=== PATIENT | female | born 1930 | race Caucasian/White ===

== ENCOUNTER 2017-04-09 01:14 | Emergency (ER) | payer MEDICARE, BC ==
[~2017-04-09] VITALS: Ht 165.1 cm; Wt 59.4 kg
[~2017-04-09 01:14] MED LIST: ACETAMINOPHEN500 MG PO; ALEVE220 M1 PO; ASPIR 8181 MG PO; ATROVENT HFA12.9 GM INH; B-12500 MCG PO; BENZONATATE100 MG PO; BIOTIN2500 MCG PEG; EXELON1 EAC1; EXELON1.5 MG TOP; FELODIPINE ER2.5 MG PO; FIBERCON625 MG PO; FUROSEMIDE40 MG PO; HYDRALAZINE HCL25 MG PO; IRON55 MG PO; KLOR-CON 88 MEQ PO; LOSARTAN POTAS100 MG PO; MOVE FREE PO; MUCINEX DM ER1 EACH PO; NAMENDA10 MG PO; PANTOPRAZOLE SO40 MG PO; RANITIDINE HCL300 M1 PO; VERAMYST10 GM; VIACTIV SOFT C1 EACH; [UNRECOGNIZED DRUG - OTHER]
[2017-04-09] MEDS ORDERED: FIBERCON625 MG PO (01:43)
[2017-04-09] MEDS ORDERED: FERROUS SULFAT325 MG PO (01:43)
[2017-04-09] MEDS ORDERED: MUCINEX DM ER1 EACH PO (01:43)
[2017-04-09] MEDS ORDERED: ADVAIR 100-501 EACH INH (01:43)
[2017-04-09] MEDS ORDERED: QUETIAPINE FUMA25 MG PO (01:43)
[2017-04-09] MEDS ORDERED: LOSARTAN POTAS100 MG PO (01:43)
[2017-04-09] MEDS ORDERED: EXELON1 EAC1 TOP (01:43)
--- NOTE | 2017-04-09 03:24 | Diagnostic Imaging Report ---
History:Falll Comparison studies:None Technique: Axial images were obtained from the skull base to the vertex. Coronal and sagittal images reconstructed from the axial data. Intravenous contrast: None Findings: Scalp/skull: No abnormalities. Extra-axial spaces: No masses. No fluid collections. Brain sulci: Mildly prominent. Ventricles: Mild compensatory dilatation. No hydrocephalus. Parenchyma: Few hypodensities in the supratentorial white matter are small vessel ischemic changes. No masses, hemorrhage, acute or chronic cortical vascular insults. Sellar/suprasellar region: No abnormalities. Craniocervical junction: Patent foramen magnum. No Chiari one malformation. Incidental findings: Mild atherosclerotic calcifications in the carotid siphons . Air fluid level at the left maxillary sinus. Impression: No acute intracranial abnormalities. Non specific air fluid level at the left maxillary sinus, could be inflammatory or post traumatic, no displaced fractures. Chronic findings: 1. Mild generalized volume loss. 2. Mild supratentorial white matter small vessel ischemic changes. Signed by: DR Silvestre Day M.D. on 04/09/2017 3:21 AM
--- NOTE | 2017-04-09 03:31 | Diagnostic Imaging Report ---
History: Fall Comparison studies: None Technique: Axial images were obtained through the cervical region. Coronal and sagittal images reconstructed from the axial data. Intravenous contrast: None Findings: Atlantoaxial articulation: No acute abnormality Alignment: Normal lordosis No scoliosis. Cervicomedullary junction: No abnormalities. Patent foramen magnum. Soft tissues: No gross abnormalities. Vertebrae: No fractures, neoplasm or infection. Degenerative changes: Facet and uncinate process hypertrophy result in moderate right foraminal narrowing at C3-4 and mild right foraminal narrowing at C4-5 and C5-6. Patent canal. Disc degeneration at C6-7. IMPRESSION: 1. No acute cervical spine abnormalities. Degenerative changes as described, 2. Cannot exclude ligament, spinal cord and or vascular abnormalities on the basis of this examination. Signed by: DR Silvestre Day M.D. on 04/09/2017 3:27 AM
--- NOTE | 2017-04-09 03:42 | Diagnostic Imaging Report ---
SHOULDER LEFT COMPLETE, PELVIS AP 1-2 VIEWS, ELBOW LEFT COMPLETE, WRIST COMPLETE LEFT Comparison: None Clinical history: Status post fall with left arm and pelvic pain Findings: Overall decreased bone mineralization. Left shoulder, left elbow, left wrist: No acute fracture or dislocation. Suboptimal lateral view of the elbow precluding adequate assessment for joint effusion. Severe first CMC degenerative change. AP pelvis: Bowel gas/stool overlies portions of the bony pelvis. Moderate/severe right greater than left hip and partially imaged lumbosacral degenerative changes. No acute fracture seen. Impression: No acute bony abnormality of the left shoulder, elbow, wrist or pelvis. Signed by: Dr Laureen Looney MD on 04/09/2017 3:38 AM
[2017-04-09 04:41] VITALS: BP 125/85
== END 2017-04-09 04:42 ==
LOC: ER 01:14
DX: S00.03XA Contusion of scalp, initial encounter (principal); S40.012A Contusion of left shoulder, initial encounter; S50.02XA Contusion of left elbow, initial encounter; M25.532 Pain in left wrist; W06.XXXA Fall from bed, initial encounter; W01.0XXA Fall on same level from slipping, tripping and stumbling without subsequent striking against object, initial encounter; Y92.122 Bedroom in nursing home as the place of occurrence of the external cause; I10 Essential (primary) hypertension; F03.90 Unspecified dementia, unspecified severity, without behavioral disturbance, psychotic disturbance, mood disturbance, and anxiety; Z88.8 Allergy status to other drugs, medicaments and biological substances; Z88.5 Allergy status to narcotic agent
CPT/HCPCS: 70450; 72125; 72170; 99284

== ENCOUNTER 2017-04-20 13:05 | Inpatient (IN) | payer MEDICARE, BC ==
[~2017-04-20] VITALS: Ht 170.2 cm; Wt 59.4 kg
[~2017-04-20 13:05] MED LIST changes: +ADVAIR 100-501 EACH INH; +EXELON1 EAC1 TOP; +FERROUS SULFAT325 MG PO; +QUETIAPINE FUMA25 MG PO
[2017-04-20] MEDS ORDERED: SODIUM CHLORIDE 0.9% 1000ML 1,000 ML IV STA (13:42)
[2017-04-20 14:15] LABS: BASOPHILS % 0.3 % (0.0-1.0); EOSINOPHILS # (AUTO) 0.1 (0.0-0.4); HEMATOCRIT 33.6 % (34.2-44.1); LYMPHOCYTES # (AUTO) 2.8 (1.0-3.2); MEAN CORPUSCULAR HEMOGLOBIN 31.4 pg (28-32); MEAN CORPUSCULAR HGB CONC 32.7 g/dL (31-35); MONOCYTES # (AUTO) 1.1 (0.2-0.8); NEUTROPHILS # (AUTO) 7.1 (2.1-6.9); NEUTROPHILS % 62.9 % (38.7-80.0); PLATELET COUNT 305 x10e3/uL (140-360); RED CELL DISTRIBUTION WIDTH 13.8 % (11.7-14.4)
--- NOTE | 2017-04-20 14:21 | Diagnostic Imaging Report ---
History:AMS Comparison studies:CT head 04/09/17 Technique: Axial images were obtained from the skull base to the vertex. Coronal and sagittal images reconstructed from the axial data. Intravenous contrast: None Findings: Scalp/skull: No abnormalities. Extra-axial spaces: No masses. No fluid collections. Brain sulci: Mildly prominent. Ventricles: Mild compensatory dilatation. No hydrocephalus. Parenchyma: Scattered hypodensities in the supratentorial white matter are small vessel ischemic changes. No masses, hemorrhage, acute or chronic cortical vascular insults. Sellar/suprasellar region: No abnormalities. Craniocervical junction: Patent foramen magnum. No Chiari one malformation. Incidental findings: Atherosclerotic calcifications in the carotid siphons . Nonspecific inflammatory changes of the maxillary sinuses. Impression: No acute abnormalities. Chronic findings: 1. Mild generalized volume loss. 2. Mild supratentorial white matter small vessel ischemic changes. Signed by: DR Silvestre Day M.D. on 04/20/2017 2:18 PM
[2017-04-20 14:30] LABS: ALBUMIN 2.1 g/dL (3.5-5.0); ALBUMIN/GLOBULIN RATIO 0.4 (0.8-2.0); ANION GAP 16.9 mmol/L (8-16); CREATININE, SERUM 2.1 mg/dL (0.57-1.11); POTASSIUM 3.9 mmol/L (3.5-5.1)
--- NOTE | 2017-04-20 14:36 | Diagnostic Imaging Report ---
EXAMINATION: Chest, PA. Abdomen, 2 views. INDICATION: Chest pain COMPARISON: None FINDINGS: LINES: None. Heart: Normal cardiac silhouette. Vascular: The pulmonary vasculature is within normal limits. Atherosclerotic calcifications of the aortic arch. Mediastinum: No mediastinal, hilar, or axillary mass or lymphadenopathy. Lungs: No parenchymal mass. No focal consolidation. Pleura: No pleural effusion. No pneumothorax. Bowel: No air fluid levels.. No pneumoperitoneum.. Moderate amount of retained feces and air are noted in the colon and rectum. No calcifications project over the renal shadows, expected course of the ureters bilaterally, and bladder. Soft tissues: Normal. Bones: No acute osseous abnormality. Degenerative changes of the thoracic and lumbar spine and pelvis. Impression: No acute radiographic abnormality. Signed by: Dr. Duane Marie M.D. on 04/20/2017 2:33 PM
[2017-04-20 14:37] LABS: CREATINE KINASE MB 1.2 ng/mL (0.00-5.00); TROPONIN I 0.013 ng/mL (0-0.300)
[2017-04-20 15:35] LABS: BILIRUBIN,URINE NEGATIVE (NEGATIVE); KETONES,URINE NEGATIVE (NEGATIVE); LEUKOCYTE ESTERASE ,URINE NEGATIVE (NEGATIVE); NITRITE,URINE NEGATIVE (NEGATIVE); URINE UROBILINOGEN 0.2 mg/dL (0.2 - 1)
[2017-04-20 15:40] LABS: CLARITY,URINE HAZY (CLEAR); COLOR,URINE YELLOW (YELLOW); PROTEIN,URINE DIPSTICK TRACE (NEGATIVE)
[2017-04-20 15:41] LABS: BACTERIA,URINE FEW /HPF; EPITHELIAL CELLS,URINE FEW /LPF; RBC,URINE 0-5 /HPF (0-5); WBC,URINE (MAN) 0-5 /HPF (0-5)
[2017-04-20] MEDS ORDERED: ONDANSETRON HCL INJ 2 MG/ML VIAL IV PRN (16:45)
[2017-04-20] MEDS ORDERED: LACTULOSE SYRUP 20 GM/30 ML UDC PO PRN (16:45)
[2017-04-20] MEDS: SODIUM CHLORIDE 0.9% 1000ML 1,000 ML IV SCH (19:00)
[2017-04-20 23:45] VITALS: BP 158/82
[2017-04-21 04:00] VITALS: BP 134/81
[2017-04-21] MEDS: SODIUM CHLORIDE 0.9% 1000ML 1,000 ML IV SCH ×2 (05:48→08:40)
[2017-04-21 07:30] VITALS: BP 150/96
[2017-04-21 07:48] LABS: BASOPHILS % 0.2 % (0.0-1.0); EOSINOPHILS # (AUTO) 0.1 (0.0-0.4); HEMATOCRIT 31.2 % (34.2-44.1); HEMOGLOBIN 10.2 g/dL (12.0-16.0); LYMPHOCYTES # (AUTO) 2.1 (1.0-3.2); LYMPHOCYTES % 21.1 % (18.0-39.1); MEAN CORPUSCULAR HEMOGLOBIN 31.4 pg (28-32); MEAN CORPUSCULAR HGB CONC 32.7 g/dL (31-35); MONOCYTES # (AUTO) 1.2 (0.2-0.8); NEUTROPHILS # (AUTO) 6.3 (2.1-6.9); NEUTROPHILS % 64.3 % (38.7-80.0); PLATELET COUNT 287 x10e3/uL (140-360); RED BLOOD COUNT 3.25 x10e6/uL (3.6-5.1); RED CELL DISTRIBUTION WIDTH 13.8 % (11.7-14.4)
[2017-04-21 08:00] VITALS: BP 150/96
[2017-04-21 08:19] LABS: ANION GAP 15.2 mmol/L (8-16); CALCIUM 8.2 mg/dL (8.4-10.2); CREATININE, SERUM 1.31 mg/dL (0.57-1.11); POTASSIUM 3.2 mmol/L (3.5-5.1)
[2017-04-21] MEDS ORDERED: SODIUM CHLORIDE 0.45% 1,000 ML IV ONE (11:00)
[2017-04-21] MEDS: AZITHROMYCIN 500MG/NS 250 ML 250 ML IV SCH (11:54)
[2017-04-21 12:00] VITALS: BP 126/74
[2017-04-21 16:00] VITALS: BP 163/84
[2017-04-21] MEDS: FAMOTIDINE 20 MG TAB PO SCH (16:30)
[2017-04-21 20:00] VITALS: BP 155/89
[2017-04-21] MEDS ORDERED: POTASSIUM CHLORIDE 20MEQ/100ML 100 ML IV ONE (20:30)
[2017-04-21] MEDS: HEPARIN SOD (PORCINE) 5,000 UNIT/ML VIAL SC SCH (22:30)
[2017-04-21] MEDS ORDERED: POTASSIUM CHLORIDE 10MEQ/100ML 100 ML IV ONE ×2 (22:30)
[2017-04-22] VITALS (7 sets, daily range): BP systolic 121–175; BP diastolic 61–100
[2017-04-22] MEDS: FAMOTIDINE 20 MG TAB PO SCH ×2 (09:50→16:29)
[2017-04-22] MEDS: HEPARIN SOD (PORCINE) 5,000 UNIT/ML VIAL SC SCH ×2 (09:52→21:00)
[2017-04-22 09:55] LABS: ANION GAP 17.2 mmol/L (8-16); CALCIUM 8.1 mg/dL (8.4-10.2); CREATININE, SERUM 0.97 mg/dL (0.57-1.11); POTASSIUM 3.2 mmol/L (3.5-5.1)
[2017-04-22] MEDS: AZITHROMYCIN 500MG/NS 250 ML 250 ML IV SCH (12:21)
[2017-04-22] MEDS ORDERED: LABETALOL HCL IV 5 MG/ML 20ML MDV IV PRN (12:45)
--- NOTE | 2017-04-22 12:58 | History and Physical ---
CHIEF COMPLAINT: Unresponsiveness. HISTORY OF PRESENT ILLNESS: This 86-year-old woman, who lives at [facility], developed unresponsiveness. Last week, the patient had been having respiratory congestion and coughing. She has also had decreased oral intake in the past week per her daughter at the bedside. The patient was found to be dehydrated with acute kidney injury. She was admitted for further evaluation and management. The patient is unable to provide any history in part due to dementia. PAST MEDICAL HISTORY: Dementia, hypertension, urinary tract infection, peptic ulcer disease with perforation status post surgical management, ambulatory dysfunction with use of a walker. Sepsis. Adverse effect due to salicylates/aspirin causing perforated ulcer. PAST SURGICAL HISTORY: Perforated ulcer, status post surgical management. Appendectomy and hysterectomy. ALLERGIES: PER ELECTRONIC MEDICAL RECORD. FAMILY/SOCIAL HISTORY: The patient is . She has 2 children. No alcohol, illicits or cigarettes. MEDICATIONS: Per electronic medical record. REVIEW OF SYSTEMS: Denies any chest pain or shortness of breath. PHYSICAL EXAMINATION VITAL SIGNS: Temperature 97.2, pulse 77, blood pressure 114/48, respiratory rate 16, oxygen 97% on room air. GENERAL APPEARANCE: A tired-appearing woman resting in bed. HEENT: Anicteric. CARDIOVASCULAR: Normal S1 and S2. LUNGS: Moderate breath sounds, slightly reduced at the bases. ABDOMEN: Soft, nontender, nondistended. EXTREMITIES: No edema or calf tenderness. NEUROLOGIC: Alert. Oriented times 2. She moves all extremities. She is confused. She thinks her daughter is her sister. LABS: Reviewed. MEDICATIONS: Reviewed. ASSESSMENT AND PLAN: This is an 86-year-old woman. 1. Electrolyte derangement. 2. Hypernatremia and hypokalemia. Change fluids to half-normal saline and replace potassium and recheck. 3. Acute kidney injury. Rehydrate the patient. 4. Acute delirium in the setting of dementia. Restart home medications and rehydrate the patient. 5. Upper respiratory infection. Will use azithromycin for coverage of atypicals. 6. Ambulatory dysfunction and physical deconditioning. Will get physical therapy on board. 7. Prophylaxis. Will use heparin and Pepcid. 8. Disposition: Physical therapy consultation. Continue antitussives. Discharge planning. Follow up labs tomorrow. Job#: [id number]
[2017-04-22] MEDS ORDERED: ALPRAZOLAM 0.25 MG TAB PO PRN (18:15)
[2017-04-22] MEDS ORDERED: HALOPERIDOL LACTATE 5 MG/ML VIAL IM ONE (19:00)
[2017-04-23] VITALS (8 sets, daily range): BP systolic 100–147; BP diastolic 57–87
[2017-04-23] MEDS ORDERED: HALOPERIDOL LACTATE 5 MG/ML VIAL IM ONE
[2017-04-23 07:26] LABS: BASOPHILS % 0.4 % (0.0-1.0); EOSINOPHILS # (AUTO) 0.2 (0.0-0.4); EOSINOPHILS % 1.7 % (0.0-6.0); HEMATOCRIT 31.5 % (34.2-44.1); HEMOGLOBIN 10.2 g/dL (12.0-16.0); LYMPHOCYTES # (AUTO) 2.1 (1.0-3.2); LYMPHOCYTES % 23.1 % (18.0-39.1); MEAN CORPUSCULAR HEMOGLOBIN 31.5 pg (28-32); MEAN CORPUSCULAR HGB CONC 32.4 g/dL (31-35); MEAN CORPUSCULAR VOLUME 97.2 fL (81-99); MONOCYTES # (AUTO) 1.4 (0.2-0.8); MONOCYTES % 15.3 % (4.4-11.3); NEUTROPHILS # (AUTO) 5.3 (2.1-6.9); NEUTROPHILS % 59.2 % (38.7-80.0); PLATELET COUNT 243 x10e3/uL (140-360); RED BLOOD COUNT 3.24 x10e6/uL (3.6-5.1); RED CELL DISTRIBUTION WIDTH 13.9 % (11.7-14.4)
[2017-04-23 07:54] LABS: ANION GAP 14.1 mmol/L (8-16); CALCIUM 7.6 mg/dL (8.4-10.2); CREATININE, SERUM 0.95 mg/dL (0.57-1.11); POTASSIUM 3.1 mmol/L (3.5-5.1)
--- NOTE | 2017-04-23 08:01 | Progress Note ---
DATE: April 22, 2017 TIME: 6 a.m. OVERNIGHT: More alert. REVIEW OF SYSTEMS: Denies any chest pain. VITAL SIGNS: Reviewed. PHYSICAL EXAMINATION GENERAL: A tired-appearing woman resting in bed. HEENT: Anicteric. CARDIOVASCULAR: Normal S1 and S2. LUNGS: Moderate breath sounds. ABDOMEN: Soft, nontender, nondistended. EXTREMITIES: No edema or calf tenderness. NEUROLOGIC: Alert. Oriented times 2. She moves all extremities. SKIN: Dry. PSYCHIATRIC: Flat affect. LABS: Reviewed. MEDICATIONS: Reviewed. ASSESSMENT AND PLAN: This is an 86-year-old woman. 1. Electrolyte derangement. 2. Acute kidney injury. 3. Acute delirium. 4. Upper respiratory infection. 5. Ambulatory dysfunction and physical deconditioning. PLAN 1. Continue management of electrolyte replacement. 2. Continue fluids. 3. Physical therapy. 4. Continue antimicrobial. 5. Discharge planning. Job#: [id number]
[2017-04-23] MEDS: QUETIAPINE FUMARATE 25 MG TAB PO SCH ×3 (09:00→20:36)
--- NOTE | 2017-04-23 09:35 | Diagnostic Imaging Report ---
History:AMS, fall Comparison studies:CT head 04/20/2017 and 04/09/17 Technique: Axial images were obtained from the skull base to the vertex. Coronal and sagittal images reconstructed from the axial data. Intravenous contrast: None Findings: Scalp/skull: No abnormalities. Extra-axial spaces: No masses. No fluid collections. Brain sulci: Mildly prominent. Ventricles: Mild compensatory dilatation. No hydrocephalus. Parenchyma: Scattered hypodensities in the supratentorial white matter are small vessel ischemic changes. No masses, hemorrhage, acute or chronic cortical vascular insults. Sellar/suprasellar region: No abnormalities. Craniocervical junction: Patent foramen magnum. No Chiari one malformation. Incidental findings: Atherosclerotic calcifications in the carotid siphons . Nonspecific inflammatory changes of the maxillary sinuses. Air-fluid level at the right sphenoid sinus, new since previous examination Impression: No acute abnormalities. Stable intracranial examination. Right sphenoid sinusitis Chronic findings: 1. Mild generalized volume loss. 2. Mild supratentorial white matter small vessel ischemic changes. Signed by: DR Silvestre Day M.D. on 04/23/2017 9:31 AM
[2017-04-23] MEDS ORDERED: MAGNESIUM SULFATE 2GM/50ML 50 ML IV ONE (09:45)
--- NOTE | 2017-04-23 09:54 | Diagnostic Imaging Report ---
PROCEDURE:TIBIA-FIBULA BILATERAL INDICATION:Leg pain, fall, altered bowel status COMPARISON:None. FINDINGS: No acute, displaced fracture or dislocation. Partially visualized knee and ankle joint spaces are relatively well maintained. No soft tissue abnormalities. CONCLUSION: No acute osseous abnormalities. Dictated by: Ramos Aguiar M.D. on 04/23/2017 at 10:03 Electronically approved by: Ramos Aguiar M.D. on 04/23/2017 at 10:03
--- NOTE | 2017-04-23 09:56 | Diagnostic Imaging Report ---
PROCEDURE:SACRUM X-RAY INDICATION:Fall, pain COMPARISON:None. FINDINGS: The bones are diffusely osteopenic. No displaced sacral fracture, though examination is limited secondary to extensive rectal gas and stool which obscures the inferior sacrum. The sacral foramina appear intact superiorly. The sacroiliac joints are relatively well-maintained. CONCLUSION: Diffuse osteopenia. No acute osseous abnormality. Dictated by: Ramos Aguiar M.D. on 04/23/2017 at 10:04 Electronically approved by: Ramos Aguiar M.D. on 04/23/2017 at 10:04
--- NOTE | 2017-04-23 09:58 | Diagnostic Imaging Report ---
PROCEDURE:WRIST COMPLETE BILATERAL INDICATION:Fall, pain, altered mental status COMPARISON:None. FINDINGS: No acute, displaced fracture or dislocation. Appropriate alignment between the distal radii, lunate, and capitate bones is maintained on the lateral radiographs. Right greater than left first carpometacarpal degenerative joint disease with joint space narrowing, subchondral sclerosis and marginal osteophytosis. Soft tissues are unremarkable. CONCLUSION: No acute osseous abnormality. Diffuse osteopenia. Dictated by: Ramos Aguiar M.D. on 04/23/2017 at 10:07 Electronically approved by: Ramos Aguiar M.D. on 04/23/2017 at 10:07
[2017-04-23] MEDS ORDERED: SODIUM CHLORIDE 0.9% 250ML 250 ML ONE (10:17)
[2017-04-23] MEDS: FAMOTIDINE 20 MG TAB PO SCH ×2 (10:27→17:33)
[2017-04-23] MEDS: HEPARIN SOD (PORCINE) 5,000 UNIT/ML VIAL SC SCH ×2 (10:28→20:36)
[2017-04-23] MEDS: AZITHROMYCIN 500MG/NS 250 ML 250 ML IV SCH (12:19)
--- NOTE | 2017-04-23 17:58 | Progress Note ---
DATE: April 23, 2017 TIME OF SERVICE: 7 a.m. SUBJECTIVE: Overnight feeling a little better . REVIEW OF SYSTEMS: (DR. HAYS SAYS, PLEASE DISCARD THIS DICTATION). Job#: [id number] GH
--- NOTE | 2017-04-23 18:30 | Progress Note ---
DATE: April 23, 2017 TIME OF SERVICE: 7:00 a.m. SUBJECTIVE: The patient fell this morning. REVIEW OF SYSTEMS: Unobtainable. OBJECTIVE VITAL SIGNS: Reviewed. GENERAL: A tired-appearing woman resting in bed. HEENT: Anicteric. CARDIOVASCULAR: Normal S1 and S2. LUNGS: Moderate breath sounds. ABDOMEN: Soft, nontender. EXTREMITIES: No edema. NEUROLOGIC: Alert. Oriented times 2. She moves all extremities. SKIN: Dry. PSYCHIATRIC: Flat affect. LABS: Reviewed. MEDICATIONS: Reviewed. ASSESSMENT: This is an 86-year-old woman. 1. Electrolyte derangement. 2. Acute kidney injury. 3. Acute delirium. 4. Upper respiratory infection. 5. Ambulatory dysfunction and physical deconditioning. 6. Fall. PLAN 1. Continue management of electrolyte replacement. 2. Continue antimicrobials. 3. CT scan of the brain showed no acute abnormalities. 4. Normocytic anemia, will follow 5. Fall. Imaging x-ray negative and CT of the brain negative. 6. Leukocytosis, resolved. 7. Hypomagnesemia, replaced. 8. Hypokalemia, replaced. 9. Skilled facility placement. Job#: [id number]
[2017-04-24] VITALS (7 sets, daily range): BP systolic 119–138; BP diastolic 58–73
[2017-04-24] MEDS: FAMOTIDINE 20 MG TAB PO SCH ×2 (08:35→16:20)
[2017-04-24] MEDS: QUETIAPINE FUMARATE 25 MG TAB PO SCH ×2 (08:36→21:57)
[2017-04-24] MEDS: HEPARIN SOD (PORCINE) 5,000 UNIT/ML VIAL SC SCH ×2 (08:56→21:57)
[2017-04-24] MEDS: AZITHROMYCIN 500MG/NS 250 ML 250 ML IV SCH (11:23)
[2017-04-24 12:07] LABS: BASOPHILS % 0.5 % (0.0-1.0); EOSINOPHILS # (AUTO) 0.2 (0.0-0.4); EOSINOPHILS % 2.4 % (0.0-6.0); HEMATOCRIT 30.2 % (34.2-44.1); HEMOGLOBIN 9.9 g/dL (12.0-16.0); LYMPHOCYTES # (AUTO) 1.9 (1.0-3.2); MEAN CORPUSCULAR HEMOGLOBIN 31.8 pg (28-32); MEAN CORPUSCULAR HGB CONC 32.8 g/dL (31-35); MEAN CORPUSCULAR VOLUME 97.1 fL (81-99); MONOCYTES # (AUTO) 1.1 (0.2-0.8); MONOCYTES % 15.9 % (4.4-11.3); NEUTROPHILS # (AUTO) 3.5 (2.1-6.9); NEUTROPHILS % 51.7 % (38.7-80.0); PLATELET COUNT 227 x10e3/uL (140-360); RED BLOOD COUNT 3.11 x10e6/uL (3.6-5.1); RED CELL DISTRIBUTION WIDTH 14.2 % (11.7-14.4)
[2017-04-24 12:23] LABS: ANION GAP 14.1 mmol/L (8-16); CALCIUM 7.5 mg/dL (8.4-10.2); CREATININE, SERUM 1.14 mg/dL (0.57-1.11); POTASSIUM 3.1 mmol/L (3.5-5.1)
[2017-04-24] MEDS ORDERED: POTASSIUM CHLORIDE 20 MEQ TAB CR PO ONE (16:00)
[2017-04-25] VITALS (7 sets, daily range): BP systolic 130–156; BP diastolic 60–82
[2017-04-25 07:10] LABS: ANION GAP 13.8 mmol/L (8-16); CALCIUM 7.4 mg/dL (8.4-10.2); CREATININE, SERUM 1.18 mg/dL (0.57-1.11); POTASSIUM 3.8 mmol/L (3.5-5.1)
--- NOTE | 2017-04-25 08:25 | Progress Note ---
DATE: April 24, 2017 TIME: 7 a.m. OVERNIGHT: No events. REVIEW OF SYSTEMS: Unreliable. PHYSICAL EXAMINATION VITAL SIGNS: Reviewed. GENERAL: A tired-appearing woman resting in bed. HEENT: Anicteric. CARDIOVASCULAR: Normal S1 and S2. LUNGS: Moderate breath sounds. ABDOMEN: Soft and nontender. EXTREMITIES: No edema. SKIN: Dry. PSYCHIATRIC: Flat affect. NEUROLOGICAL: Alert and oriented to self. LABS: Reviewed. MEDICATIONS: Reviewed. ASSESSMENT: An 86-year-old woman with: 1. Electrolyte derangement. 2. Acute kidney injury. 3. Acute delirium. 4. Upper respiratory infection. 5. Ambulatory dysfunction with physical deconditioning. 6. Fall. PLAN 1. Continue physical therapy. 2. Receiving antimicrobials. 3. CT of the brain was negative for any acute findings. 4. Replace electrolytes. 5. Skilled facility placement is pending. Job#: [id number] [place]
--- NOTE | 2017-04-25 08:29 | Progress Note ---
DATE: April 25, 2017 TIME: 7:53 a.m. OVERNIGHT: Remains confused to some degree. REVIEW OF SYSTEMS: Denies any chest pain. PHYSICAL EXAMINATION VITAL SIGNS: Reviewed. GENERAL: A tired-appearing woman resting in bed. HEENT: Anicteric. CARDIOVASCULAR: Normal S1 and S2. LUNGS: Moderate breath sounds. ABDOMEN: Soft and nontender. EXTREMITIES: No edema. SKIN: Dry. PSYCHIATRIC: Flat affect. NEUROLOGICAL: Alert and oriented times 2. LABS: Reviewed. MEDICATIONS: Reviewed. ASSESSMENT: An 86-year-old woman with: 1. Electrolyte derangement. 2. Acute kidney injury in the setting of acute delirium. 3. Upper respiratory infection. 4. Ambulatory dysfunction. 5. Physical deconditioning. 6. Fall. PLAN 1. Continue physical therapy. 2. Received antibiotics. 3. CT scan of the brain was negative for any acute findings. 4. Replace electrolytes. 5. Discharge planning to skilled facility is pending. 6. Hemoglobin has been relatively stable. 7. Hypernatremia persists. Will give D5W in an attempt to improve and resolve this. 8. Acute kidney injury also persists. Likely has chronic kidney disease, stage 3. Renal function has shown some improvement. We will recheck magnesium. Will check electrolytes today and replace as appropriate. Job#: [id number] ABDIEL
[2017-04-25 08:34] LABS: MAGNESIUM 1.4 MG/DL (1.3-2.1); PHOSPHORUS 1.4 MG/DL (2.3-4.7)
[2017-04-25] MEDS: QUETIAPINE FUMARATE 25 MG TAB PO SCH (09:00)
[2017-04-25] MEDS: FAMOTIDINE 20 MG TAB PO SCH ×2 (09:00→16:17)
[2017-04-25] MEDS: HEPARIN SOD (PORCINE) 5,000 UNIT/ML VIAL SC SCH (09:58)
[2017-04-25] MEDS: AZITHROMYCIN 500MG/NS 250 ML 250 ML IV SCH (11:58)
== END 2017-04-25 20:50 | DRG 683 ==
LOC: ER 13:05 → ERHOLD 16:57 → MED/SURG2 23:00
PROVIDERS: ADMIT Internal Medicine; ATTEND Internal Medicine
DX: N17.9 Acute kidney failure, unspecified (principal); F05 Delirium due to known physiological condition; E87.0 Hyperosmolality and hypernatremia; F03.90 Unspecified dementia, unspecified severity, without behavioral disturbance, psychotic disturbance, mood disturbance, and anxiety; E87.8 Other disorders of electrolyte and fluid balance, not elsewhere classified; E86.0 Dehydration; J06.9 Acute upper respiratory infection, unspecified; E87.6 Hypokalemia; R26.9 Unspecified abnormalities of gait and mobility; Z87.11 Personal history of peptic ulcer disease; W19.XXXA Unspecified fall, initial encounter; I12.9 Hypertensive chronic kidney disease with stage 1 through stage 4 chronic kidney disease, or unspecified chronic kidney disease; N18.3 Chronic kidney disease, stage 3 (moderate)
CPT/HCPCS: 36415; 70450; 72220; 74022; 80048; 80053; 81001; 82150; 82550; 82553; 82948; 83690; 83735; 84100; 84443; 84484; 85025; 87086; 87400; 93005; 96360; 97139; 99284; J0456; J1630; J1644; J3480; J7030; J7050